=== PATIENT | female | born 1960 | race Native Hawaiian/Other Pacific Islander ===

== ENCOUNTER 2017-03-28 08:51 | Outpatient (CLI) | payer BC | END 2017-03-28 19:04 | disposition home or self-care (01) | LOC: MAMMO 08:51 | DX: Z12.31 Encounter for screening mammogram for malignant neoplasm of breast (principal) ==

== ENCOUNTER 2019-04-18 18:06 | Outpatient (CLI) | payer OTHER | END 2019-04-18 18:11 | disposition short-term general hospital (02) | LOC: AMB 18:06 | DX: R07.9 Chest pain, unspecified (principal); R51 Headache; R00.0 Tachycardia, unspecified; V47.0XXA Car driver injured in collision with fixed or stationary object in nontraffic accident, initial encounter; Y92.481 Parking lot as the place of occurrence of the external cause | CPT/HCPCS: A0425; A0427 ==

== ENCOUNTER 2019-04-18 18:11 | Emergency (ER) | payer OTHER ==
[~2019-04-18] VITALS: Ht 177.8 cm; Wt 106.6 kg
[2019-04-18 19:53] VITALS: BP 157/91; TEMP 98.5
== END 2019-04-18 19:54 | disposition home or self-care (01) ==
LOC: ED 18:11
DX: S20.212A Contusion of left front wall of thorax, initial encounter (principal); S20.211A Contusion of right front wall of thorax, initial encounter; V47.0XXA Car driver injured in collision with fixed or stationary object in nontraffic accident, initial encounter; Y92.481 Parking lot as the place of occurrence of the external cause
CPT/HCPCS: 93005; 99283

== ENCOUNTER 2019-09-25 08:13 | Outpatient (CLI) | payer BC | END 2019-09-25 21:29 | disposition home or self-care (01) | LOC: MAMMO 08:13 | DX: Z12.31 Encounter for screening mammogram for malignant neoplasm of breast (principal) ==

== ENCOUNTER 2021-04-07 09:17 | Outpatient (CLI) | payer BC, OTHER ==
[~2021-04-07] VITALS: Ht 177.8 cm; Wt 103.0 kg
== END 2021-04-07 18:55 | disposition home or self-care (01) ==
LOC: INF 09:17
PROVIDERS: ATTEND Nurse Practitioner Family
DX: U07.1 COVID-19 (principal); Z23 Encounter for immunization
CPT/HCPCS: 96365; M0244

== ENCOUNTER 2021-12-10 14:21 | Outpatient (CLI) | payer BC | END 2021-12-10 21:31 | disposition home or self-care (01) | LOC: MAMMO 14:21 | PROVIDERS: ATTEND Nurse Practitioner Family | DX: Z12.31 Encounter for screening mammogram for malignant neoplasm of breast (principal) ==

== ENCOUNTER 2022-03-10 14:09 | Outpatient (CLI) | payer BC | END 2022-03-10 21:36 | disposition home or self-care (01) | LOC: RAD 14:09 | PROVIDERS: ATTEND Internal Medicine Rheumatology | DX: Z78.0 Asymptomatic menopausal state (principal) ==

== ENCOUNTER 2022-05-16 15:43 | Outpatient (CLI) | payer BC ==
[~2022-05-16] VITALS: Ht 177.8 cm; Wt 97.5 kg
[2022-05-16 15:55] VITALS: BP 161/58; TEMP 98.7
[2022-05-16 21:05] VITALS: BP 137/47; TEMP 98.5
== END 2022-05-16 19:03 | disposition home or self-care (01) ==
LOC: INF 15:43
PROVIDERS: ATTEND Internal Medicine
DX: E11.21 Type 2 diabetes mellitus with diabetic nephropathy (principal); I73.01 Raynaud's syndrome with gangrene; I87.301 Chronic venous hypertension (idiopathic) without complications of right lower extremity; I87.312 Chronic venous hypertension (idiopathic) with ulcer of left lower extremity; L03.011 Cellulitis of right finger; L03.116 Cellulitis of left lower limb
CPT/HCPCS: 96365; 96367; J0696; J3370

== ENCOUNTER 2022-05-17 15:30 | Outpatient (CLI) | payer BC ==
[~2022-05-17] VITALS: Ht 177.8 cm; Wt 97.5 kg
[2022-05-17 16:11] VITALS: BP 145/65; TEMP 98.3
== END 2022-05-17 19:00 | disposition home or self-care (01) ==
LOC: INF 15:30
PROVIDERS: ATTEND Internal Medicine
DX: E11.21 Type 2 diabetes mellitus with diabetic nephropathy (principal); I73.01 Raynaud's syndrome with gangrene; I87.301 Chronic venous hypertension (idiopathic) without complications of right lower extremity; I87.312 Chronic venous hypertension (idiopathic) with ulcer of left lower extremity; L03.011 Cellulitis of right finger; L03.116 Cellulitis of left lower limb
CPT/HCPCS: 36415; 80048; 96365; 96367; J0696; J3370

== ENCOUNTER 2022-05-18 16:22 | Outpatient (CLI) | payer BC ==
[~2022-05-18] VITALS: Ht 177.8 cm; Wt 97.5 kg
[2022-05-18 16:35] VITALS: BP 141/57; TEMP 98.4
== END 2022-05-18 19:34 | disposition home or self-care (01) ==
LOC: INF 16:22
PROVIDERS: ATTEND Internal Medicine
DX: E11.21 Type 2 diabetes mellitus with diabetic nephropathy (principal); I73.01 Raynaud's syndrome with gangrene; I87.301 Chronic venous hypertension (idiopathic) without complications of right lower extremity; I87.312 Chronic venous hypertension (idiopathic) with ulcer of left lower extremity; L03.011 Cellulitis of right finger; L03.116 Cellulitis of left lower limb
CPT/HCPCS: 96365; 96367; J0696; J3370

== ENCOUNTER 2022-05-19 14:48 | Outpatient (CLI) | payer BC ==
[~2022-05-19] VITALS: Ht 177.8 cm; Wt 97.5 kg
== END 2022-05-19 19:23 | disposition home or self-care (01) ==
LOC: INF 14:48
PROVIDERS: ATTEND Internal Medicine
DX: E11.21 Type 2 diabetes mellitus with diabetic nephropathy (principal); I73.01 Raynaud's syndrome with gangrene; I87.301 Chronic venous hypertension (idiopathic) without complications of right lower extremity; I87.312 Chronic venous hypertension (idiopathic) with ulcer of left lower extremity; L03.011 Cellulitis of right finger; L03.116 Cellulitis of left lower limb
CPT/HCPCS: 36415; 80202; 96365; 96367; J0696; J3370

== ENCOUNTER 2022-06-26 10:01 | Emergency (ER) | payer BC ==
[~2022-06-26] VITALS: Ht 177.8 cm; Wt 97.1 kg
[2022-06-26 10:04] VITALS: BP 189/69; TEMP 98.8
[2022-06-26 11:02] LABS: PLATELET COUNT 250 K/uL (152-353)
[2022-06-26 11:24] LABS: POTASSIUM 4.1 mmol/L (3.6-5.2)
== END 2022-06-26 12:13 | disposition home or self-care (01) ==
LOC: ED 10:01
PROVIDERS: Family Medicine
DX: M54.16 Radiculopathy, lumbar region (principal); M19.09 Primary osteoarthritis, other specified site; M48.061 Spinal stenosis, lumbar region without neurogenic claudication
CPT/HCPCS: 36415; 80053; 80307; 81002; 85027; 96374; 96375; 99284; J1885; J2930